=== PATIENT | female | born 1980 | race African-American/Black ===

== ENCOUNTER 2019-06-19 12:51 | Emergency (ER) | payer MEDICAID ==
[~2019-06-19] VITALS: Ht 175.3 cm; Wt 89.8 kg
[2019-06-19] MEDS ORDERED: NKM (13:04)
[2019-06-19 13:29] VITALS: BP 108/72
--- NOTE | 2019-06-19 13:46 | Emergency Room Report ---
History of Present Illness General Chief Complaint: Skin Rash/Abscess Source: Patient Present Illness HPI 38-year-old female presents to the emergency department complaining of 9 out of 10 in severity burning pain to the dorsum of the bilateral hands progressive x2 months. Patient reports previously treated for eczema with unknown steroid cream and cold tar cream. Patient is stating that she also has noticed more erythema and purulent discharge. Patient denies fevers or chills. She denies significant itching she states it itches every once in a while but not daily. Patient reports that on the right hand there is some interdigital areas with the rash. She denies palmar lesions. Pt. denies fevers, chills or swollen tender lymph nodes. Denies lesions/rashes elsewhere on the body. Denies new medications or body washes or creams. Denies swelling of the lips, tongue , throat or airway. Denies wheezing, or shortness of breath. Denies recent travel , recent illness or ill contacts. denies blisters, oral lesions, or sloughing of the skin Allergies: Coded Allergies: No Known Allergies (Unverified , 06/19/19) Patient History Past Medical History: see triage record Past Surgical History: none Pertinent Family History: none Last Menstrual Period: currently Reviewed Nursing Documentation: PMH: Agreed; PSxH: Agreed Nursing Documentation-PMH Past Medical History: No History, Except For Hx Asthma: Yes Review of Systems All Other Systems: negative except mentioned in HPI Physical Exam Vital Signs Date Time Temp Pulse Resp B/P (MAP) Pulse Ox O2 Delivery O2 Flow Rate FiO2 06/19/19 13:00 98.2 77 18 108/72 (84) 97 Room Air Sp02 EP Interpretation: reviewed, normal General Appearance: no apparent distress, alert, GCS 15, non-toxic Head: normocephalic, atraumatic Eyes: bilateral eye normal inspection, bilateral eye PERRL ENT: hearing grossly normal, no angioedema, normal voice Neck: full range of motion Respiratory: lungs clear, normal breath sounds, no wheezing, speaking full sentences Cardiovascular #1: regular rate, rhythm, normal capillary refill Musculoskeletal: gait/station normal, normal range of motion, non-tender Neurologic: alert, oriented x3, responsive, motor strength/tone normal, sensory intact, speech normal, grossly normal Psychiatric: judgement/insight normal Skin: rash - Erythema, dry scaly and multiple papules along the dorsum of the bilateral hands and interdigitally on the right hand. No palmar lesions no progression past the wrist. No vesicles or blisters. There is some warmth palpated on the areas of erythema Lymphatic: no adenopathy Medical Decision Making PA Attestation Dr. Nelson Is my supervising Physician whom patient management has been discussed with. Diagnostic Impression: Primary Impression: Dyshidrotic eczema Additional Impression: Cellulitis Qualified Codes: L03.119 - Cellulitis of unspecified part of limb ER Course 38-year-old female presents to the emergency department complaining of 9 out of 10 in severity burning pain to the dorsum of the bilateral hands progressive x2 months. Patient reports previously treated for eczema with unknown steroid cream and cold tar cream. Patient is stating that she also has noticed more erythema and purulent discharge. Patient denies fevers or chills. She denies significant itching she states it itches every once in a while but not daily. Patient reports that on the right hand there is some interdigital areas with the rash. She denies palmar lesions. Pt. denies fevers, chills or swollen tender lymph nodes. Denies lesions/rashes elsewhere on the body. Denies new medications or body washes or creams. Denies swelling of the lips, tongue , throat or airway. Denies wheezing, or shortness of breath. Denies recent travel , recent illness or ill contacts. denies blisters, oral lesions, or sloughing of the skin Ddx considered but are not limited to cellulitis, scabies, shingles, varicella, dermatitis, urticaria, eczema, tinea, viral exanthem, SJS Vital signs: are WNL, pt. is afebrile H&PE are most consistent with dyshidrotic eczema of the hands bilaterally with secondary cellulitis. No evidence of progression past the wrists, no evidence to suggest acute impending airway compromise or anaphylaxis. Patient is in no acute distress and nontoxic in appearance. ORDERS: none required at this time, the diagnosis is clinical ED INTERVENTIONS: None required at this time. DISCHARGE: At this time pt. is stable for d/c to home. Will provide printed patient care instructions, and any necessary prescriptions. Care plan and follow up instructions have been discussed with the patient prior to discharge. Last Vital Signs Date Time Temp Pulse Resp B/P (MAP) Pulse Ox O2 Delivery O2 Flow Rate FiO2 06/19/19 13:29 98.2 82 18 108/72 97 Room Air Disposition: HOME, SELF-CARE Condition: Stable Scripts Bacitracin/Polymyxin B Sulfate (BACITRACIN-POLYMYXIN OINTMENT) 28.35 Gm Oint...g. 1 APPLIC TP BID, #28.3 GM Prov: Gill Mcgill 06/19/19 Cephalexin* (KEFLEX*) 500 Mg Capsule 500 MG ORAL EVERY 12 HOURS for 7 Days, #14 CAP 0 Refills Prov: Gill Mcgill 06/19/19 Fluocinolone Acetonide (FLUOCINOLONE ACETONIDE) 15 Gm Cream..g. 1 APPLIC TP BID, #15 GM Prov: Gill Mcgill 06/19/19 Stone Tar (PSORIASIN) 21.25 Gm Gel..gram. 1 APPLIC TP QID, #21.2 GM Prov: Gill Mcgill 06/19/19 Patient Instructions: Eczema, Rash Additional Instructions: Take medications as directed. Follow up with a Primary Care Provider in 3-5 days for DERMATOLOGY REFERRAL , even if your symptoms have resolved. --Please review list of primary care clinics, if you do not already have a primary care provider Return sooner to ED if new symptoms occur, or current symptoms become worse. - Please note that this Emergency Department Report was dictated using [employer] service technician technology software, occasionally this can lead to erroneous entry secondary to interpretation by the dictation equipment. Gill Mcgill Jun 19, 2019 13:46
[2019-06-19] MEDS ORDERED: FLUOCINOLONE AC15 GM TP (13:50)
[2019-06-19] MEDS ORDERED: PSORIASIN21.25 GM TP (13:50)
[2019-06-19] MEDS ORDERED: BACITRACIN-P28.35 GM TP (13:50)
[2019-06-19] MEDS ORDERED: CEPHALEXIN500 MG ORAL (13:50)
[2019-06-19 13:58] VITALS: BP 108/72
== END 2019-06-19 13:58 | disposition home or self-care (01) ==
LOC: EMR 13:35
DX: L30.1 Dyshidrosis [pompholyx] (principal); L03.119 Cellulitis of unspecified part of limb; J45.909 Unspecified asthma, uncomplicated
CPT/HCPCS: 99282

== ENCOUNTER 2019-09-03 09:35 | Emergency (ER) | payer MEDICAID ==
[~2019-09-03] VITALS: Ht 172.7 cm; Wt 86.2 kg
[~2019-09-03 09:35] MED LIST: BACITRACIN-P28.35 GM TP; CEPHALEXIN500 MG ORAL; FLUOCINOLONE AC15 GM TP; NKM; PSORIASIN21.25 GM TP
--- NOTE | 2019-09-03 09:45 | NUR ---
ED Nurse Note: patient walked into ED c/o body aches, chest paion when coughing, runny nose for 2 days. c/o flu like symptoms. patient reports she took motrin prior to arrival to ED. patient is alert awake x4 ambulatory, on a awake overnight monitor, on a hospital gown. with stable vital signs.
--- NOTE | 2019-09-03 09:47 | NUR ---
ED Nurse Note: patient on a isolation room for precaution. masks provided.
[2019-09-03 10:38] LABS: BASOPHILS % (AUTO) 1.2 % (0.0-2.0); EOSINOPHILS % (AUTO) 2.5 % (0.0-3.0); HEMATOCRIT 41.2 % (37.0-47.0); HEMOGLOBIN 13.8 G/DL (12.0-16.0); MEAN CORPUSCULAR VOLUME 85 FL (80-99); MONOCYTES % (AUTO) 6.4 % (1.0-10.0); NEUTROPHILS % (AUTO) 76.9 % (45.0-75.0); PLATELET COUNT 192 K/UL (150-450); RED BLOOD COUNT 4.84 M/UL (4.20-5.40); RED CELL DISTRIBUTION WIDTH 12.2 % (11.6-14.8); WHITE BLOOD COUNT 5.2 K/UL (4.8-10.8)
[2019-09-03 10:49] LABS: ANION GAP 11 mmol/L (5-15); BLOOD UREA NITROGEN 8 mg/dL (7-18); CALCIUM 8.8 MG/DL (8.5-10.1); CARBON DIOXIDE 24 MMOL/L (21-32); CHLORIDE 107 MMOL/L (98-107); POTASSIUM 3.5 MMOL/L (3.5-5.1); SODIUM 142 MMOL/L (136-145)
[2019-09-03 10:53] LABS: ALANINE AMINOTRANSFERASE 20 U/L (12-78); ALBUMIN 3.4 G/DL (3.4-5.0); ALBUMIN/GLOBULIN RATIO 0.9 (1.0-2.7); ALKALINE PHOSPHATASE 56 U/L (46-116); ASPARTATE AMINO TRANSFERASE 10 U/L (15-37); BILIRUBIN,TOTAL 0.4 MG/DL (0.2-1.0)
[2019-09-03] MEDS ORDERED: PROMETHAZI6.25 MG/1 ORAL (11:19)
[2019-09-03] MEDS ORDERED: TAMIFLU75 MG ORAL (11:19)
--- NOTE | 2019-09-03 11:25 | Emergency Room Report ---
History of Present Illness General Chief Complaint: Flu Like Symptoms Source: Patient Present Illness HPI Disclaimer: Please note that this report is being documented using [employer] technology. This can lead to erroneous entry secondary to incorrect interpretation by the dictating instrument. HPI: Otherwise healthy 39-year-old female presents for evaluation of URI symptoms. Symptoms present 2 days. She notes nasal congestion, postnasal drip , sore throat, nonproductive cough with chest pain while coughing. Denies vomiting, abdominal pain or diarrhea. Denies rash. Reports a fever of 101.4 degrees that responds well to Motrin. Took Motrin a few hours prior to arrival. No travel outside the [place] or contact with recent travelers. Did not receive a flu shot this year. Patient is also reporting intermittent hives over the past few weeks. Currently she is asymptomatic and does not have any. Does not have an obvious trigger to these hives. 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 PMH: Denies PSH: Appendectomy Allergies: Denies Social Hx: Denies drug or alcohol use Allergies: Coded Allergies: No Known Allergies (Unverified , 06/19/19) Patient History Last Menstrual Period: depakote shot Nursing Documentation-PMH Past Medical History: No History, Except For Hx Asthma: Yes Review of Systems All Other Systems: negative except mentioned in HPI Physical Exam Vital Signs Date Time Temp Pulse Resp B/P (MAP) Pulse Ox O2 Delivery O2 Flow Rate FiO2 09/03/19 09:39 88.0 88 19 113/69 (84) 93 Room Air General: Awake and alert, no acute distress, afebrile HEENT: NC/AT. EOMI. tonsils are 2+, nonedematous, nonerythematous, no exudates. Uvula is midline Neck: Supple, trachea midline Chest Wall: Mild tenderness over the sternum. No deformity or crepitus Cardiovascular: RRR. S1 and S2 normal. No murmur appreciated Resp: Normal work of breathing. No cough, wheezing or crackles appreciated Abdomen: Abdomen is soft, nondistended. Nontender Skin: Intact. No abrasions, laceration or rash over the exposed skin MSK: Normal tone and bulk. Moving all extremities. No obvious deformity. Neuro: Awake and alert. Mentating appropriately. Medical Decision Making Diagnostic Impression: Primary Impression: Influenza-like symptoms ER Course Is a 39-year-old female presenting for evaluation of upper respiratory symptoms and a nonproductive cough of 2 days duration. Differential includes was not limited to viral syndrome, influenza, bronchitis, pneumonia. Start a broad metabolic infectious and cardiac work-up. Laboratory Tests Test 09/03/19 10:10 09/03/19 10:34 White Blood Count 5.2 K/UL (4.8-10.8) Red Blood Count 4.84 M/UL (4.20-5.40) Hemoglobin 13.8 G/DL (12.0-16.0) Hematocrit 41.2 % (37.0-47.0) Mean Corpuscular Volume 85 FL (80-99) Mean Corpuscular Hemoglobin 28.4 PG (27.0-31.0) Mean Corpuscular Hemoglobin Concent 33.4 G/DL (32.0-36.0) Red Cell Distribution Width 12.2 % (11.6-14.8) Platelet Count 192 K/UL (150-450) Mean Platelet Volume 7.5 FL (6.5-10.1) Neutrophils (%) (Auto) 76.9 % (45.0-75.0) H Lymphocytes (%) (Auto) 13.0 % (20.0-45.0) L Monocytes (%) (Auto) 6.4 % (1.0-10.0) Eosinophils (%) (Auto) 2.5 % (0.0-3.0) Basophils (%) (Auto) 1.2 % (0.0-2.0) Sodium Level 142 MMOL/L (136-145) Potassium Level 3.5 MMOL/L (3.5-5.1) Chloride Level 107 MMOL/L (98-107) Carbon Dioxide Level 24 MMOL/L (21-32) Anion Gap 11 mmol/L (5-15) Blood Urea Nitrogen 8 mg/dL (7-18) Creatinine 1.0 MG/DL (0.55-1.30) Estimate Glomerular Filtration Rate > 60 mL/min (>60) Glucose Level 103 MG/DL (74-106) Calcium Level 8.8 MG/DL (8.5-10.1) Total Bilirubin 0.4 MG/DL (0.2-1.0) Aspartate Amino Transferase (AST) 10 U/L (15-37) L Alanine Aminotransferase (ALT) 20 U/L (12-78) Alkaline Phosphatase 56 U/L (46-116) Troponin I 0.000 ng/mL (0.000-0.056) Total Protein 7.1 G/DL (6.4-8.2) Albumin 3.4 G/DL (3.4-5.0) Globulin 3.7 g/dL Albumin/Globulin Ratio 0.9 (1.0-2.7) L Urine HCG, Qualitative Negative (NEGATIVE) Microbiology Date/Time Source Procedure Growth Status 09/03/19 10:10 Nasal Nares - Final Complete 09/03/19 10:10 Nasal Nares - Final Complete EKG Diagnostic Results EKG Time: 10:10 Rate: normal Rhythm: NSR ST Segments: no acute changes Other Impression Sinus rhythm, left axis deviation, normal intervals, no ST segment changes Rhythm Strip Diag. Results Rhythm Strip Time: 10:10 EP Interpretation: yes Rate: 80s Rhythm: NSR, no PVC's, no ectopy Chest X-Ray Diagnostic Results Chest X-Ray Diagnostic Results : Chest X-Ray Ordered: Yes # of Views/Limited/Complete: 1 View Indication: Shortness of Breath EP Interpretation: Yes Interpretation: no consolidation, no effusion, no pneumothorax, no acute cardiopulmonary disease Impression: No acute disease Electronically Signed by: Electronically signed by Dr. Zacarias Zapien Reevaluation Time: 11:30 Last Vital Signs Date Time Temp Pulse Resp B/P (MAP) Pulse Ox O2 Delivery O2 Flow Rate FiO2 09/03/19 09:39 88.0 88 19 113/69 (84) 93 Room Air Reevaluation Impression Labs, flu swabs, EKG and chest x-ray returned within normal limits. No evidence of pneumonia. Flu swabs were negative however given the high purulence in the area recently and the patient did not receive a flu shot given her duration of symptoms she can be started on Tamiflu. We will continue NSAIDs and hydration. Discussed hand hygiene and contact precautions. She understands and agrees with this treatment plan will be discharged home. Can follow-up with her PMD. Disposition: HOME, SELF-CARE Condition: Stable Scripts Promethazine Hcl (PROMETHAZINE HCL*) 6.25 Mg/5 Ml Syrup 5 ML ORAL Q6H, #120 ML 0 Refills Prov: Zacarias Zapien MD 09/03/19 Oseltamivir Phosphate (Tamiflu) 75 Mg Capsule 75 MG ORAL TWICE A DAY for 5 Days, #10 CAP Prov: Zacarias Zapien MD 09/03/19 Referrals: NON PHYSICIAN (PCP) Jose Ramos [facility] Patient Instructions: Influenza, Adult Additional Instructions: Continue your DayQuil and NyQuil as well as Motrin to treat fevers as well as aches and pains and general discomfort. Will add Tamiflu for possible influenza infection. Drink plenty of fluids and wash your hands frequently to prevent spreading of germs to others. Follow-up with your doctor in 1 week. Also discuss allergy testing for your recurrent hives. Keep a journal of your exposures and when you get these hives to better prepare your field crop ii farmworker to make a diagnosis. Return with any new or worsening symptoms Zacarias Zapien MD Sep 03, 2019 11:25
[2019-09-03 11:27] VITALS: BP 121/62
[2019-09-03] MEDS ORDERED: Oseltamivir 75mg cap ORAL ONE (11:30)
[2019-09-03 11:36] VITALS: BP 121/62
--- NOTE | 2019-09-03 11:36 | NUR ---
ER DISCHARGE NOTE: Patient is cleared to be discharged per ERMD DR URBINA, pt is aox4, on room air, with stable vital signs. pt was given dc and prescription instructions, pt was able to verbalize understanding, pt id band and iv site removed without complications. pt is able to ambulate with steady gait. pt took all belongings.
--- NOTE | 2019-09-03 11:44 | Diagnostic Imaging Report ---
Indication: Cough Technique: One view of the chest Comparison: none Findings: Inspiration is suboptimal. There is a retrocardiac atelectasis. Lungs and pleural spaces are otherwise clear. The heart size is normal Impression: No acute process
== END 2019-09-03 11:37 | disposition home or self-care (01) ==
LOC: EMR 10:09
DX: R05 Cough (principal); Z90.89 Acquired absence of other organs; R50.9 Fever, unspecified
CPT/HCPCS: 36415; 71045; 80053; 81025; 84484; 85025; 86710; 93005; Z7502; 99283